=== PATIENT | female | born 1980 | race Caucasian/White ===

== ENCOUNTER 2018-01-12 07:49 | Day surgery (SDC) | payer OTHER ==
[2018-01-12 08:08] VITALS: BMI 30.5
[2018-01-12 08:33] VITALS: O2SAT 100
[2018-01-12] MEDS ORDERED: Propofol 10 mg/ml Inj (20 ML) ONE (10:19)
[2018-01-12] MEDS ORDERED: Lactated Ringer's 1,000 ML IV ONE ×2 (10:26)
--- NOTE | 2018-01-12 10:29 | CP.SDSHP ---
Same Day Surgery H & P - History Proposed Procedure: COLONSCOPY Pre-Op Diagnosis: SEE NOTES - Previous Medical/Surgical History Misc: Other Pain: 4.Moderate Pain - Allergies Allergies: Allergies No Known Allergies Allergy (Verified 02/06/15 08:08) - Physical Exam General Appearance: N Vital Signs: Vital Signs 01/12/18 08:17 Temperature 97 F L Pulse Rate 70 Respiratory 16 Rate Blood Pressure 113/76 O2 Sat by Pulse 100 Oximetry Mental Status: Alert & Oriented x3 Neuro: WNL Heart: WNL Lungs: WNL GI: Other - {Optional Preform as Required} Breast: WNL Abdomen: Other Rectal: Other Integument: WNL : WNL Ortho: Other ENT: WNL - Impression Pt. Evaluated Today:Candidate for Anesthesia & Procedure: Yes - Date & Time Time: 10:28 Short Stay Discharge - Short Stay Discharge Admitting Diagnosis/Reason for Visit: HEMORRHAGE OF ANUS AND RECTUM,PERSONAL HISTORY OF Disposition: HOME/ ROUTINE
[2018-01-12 11:07] VITALS: TEMP 98
[2018-01-12] MEDS ORDERED: Belladonna-Phenobarbital PO ONE (11:20)
[2018-01-12 12:46] VITALS: BP 112/63; PULSE 62; RESP 18
== END 2018-01-12 12:00 | disposition home or self-care (01) ==
LOC: C.ENDO 07:49
PROVIDERS: ATTEND Specialist
DX: K64.8 Other hemorrhoids (principal); K62.5 Hemorrhage of anus and rectum; K60.2 Anal fissure, unspecified; Z86.010 Personal history of colon polyps; K64.4 Residual hemorrhoidal skin tags
CPT/HCPCS: 45380; 84703; 88305; J2704; J3010; J7120